=== PATIENT | female | born 1965 | race Caucasian/White ===

== ENCOUNTER 2021-02-25 08:21 | Day surgery (SDC) | payer BC ==
[2021-02-23 13:24] VITALS: BMI 36.8
[2021-02-25] MEDS ORDERED: Ferric Subsulfate (ASTRINGYN) 8 GM VIAL ONE (10:04)
[2021-02-25] MEDS ORDERED: Fentanyl 100 MCG/2 ML VIAL ONE ×2 (10:10→11:15)
[2021-02-25] MEDS ORDERED: Midazolam HCl 2 mg/2 ml Vial ONE (10:10)
[2021-02-25] MEDS ORDERED: Lidocaine 4% Topical Sol 50 ML BOT ONE (10:14)
[2021-02-25] MEDS ORDERED: Ondansetron PF 4 MG/2 ML Vial ONE (10:15)
[2021-02-25] MEDS ORDERED: Succinylcholine 200 MG/10 ml SYRINGE FS ONE (10:15)
[2021-02-25] MEDS ORDERED: Glycopyrrolate 0.2 MG/ML 5 ML SYRINGE ONE (10:15)
[2021-02-25] MEDS ORDERED: Lidocaine 1% PF 5 ML VIAL ONE (10:15)
[2021-02-25] MEDS ORDERED: Dexamethasone 20 MG/5 ML VIAL ONE (10:15)
[2021-02-25] MEDS ORDERED: PROPOFOL 200 MG/20 ML VIAL ONE (10:15)
[2021-02-25] MEDS ORDERED: Hydrocodone-Acetamin 15 ML UDCUP ONE ×2 (12:50)
== END 2021-02-25 13:52 | disposition home or self-care (01) ==
LOC: SDC 08:21
PROVIDERS: ATTEND Specialist
PROC: 0CTPXZZ Resection of Tonsils, External Approach (ICD-10-PCS; principal; 2021-02-25)
PROC: 0CTNXZZ Resection of Uvula, External Approach (ICD-10-PCS; principal; 2021-02-25)
DX: J35.1 Hypertrophy of tonsils (principal); K13.79 Other lesions of oral mucosa; G47.33 Obstructive sleep apnea (adult) (pediatric); I10 Essential (primary) hypertension; E66.9 Obesity, unspecified; Z68.36 Body mass index [BMI] 36.0-36.9, adult; Z79.82 Long term (current) use of aspirin; Z79.899 Other long term (current) drug therapy; Z88.2 Allergy status to sulfonamides; Z87.891 Personal history of nicotine dependence; Z95.5 Presence of coronary angioplasty implant and graft
CPT/HCPCS: 36415; 85014; 88304; 93005; 93010; J1100; J2250; J2405; J2704; J3010